=== PATIENT | female | born 1965 | race Caucasian/White ===

== ENCOUNTER 2017-05-23 03:00 | Emergency (ER) | payer MEDICAID, OTHER ==
[~2017-05-23] VITALS: Ht 154.9 cm; Wt 54.0 kg
[~2017-05-23 03:00] MED LIST: SOMA
[2017-05-23] MEDS ORDERED: KETOROLAC 30MG/ML VIAL IV STA (06:40)
[2017-05-23 07:01] LABS: BASOPHILS % 0.7 % (0.0-2.0); EOSINOPHILS % 1.5 % (0.0-5.0); HEMATOCRIT. 36.1 % (36.0-48.0); HEMOGLOBIN. 12.7 g/dL (12.0-16.0); LYMPHOCYTES % 32.7 % (20.0-50.0); MEAN CORPUSCULAR HEMOGLOBIN 31.8 pg (28.0-32.0); MEAN CORPUSCULAR VOLUME 90.3 fL (81.0-99.0); MEAN PLATELET VOLUME 7.4 fl (7.4-10.4); NEUTROPHILS % 55.1 % (40.0-76.0); PLATELET 356 x1000/uL (130-400); RED CELL DISTRIBUTION WIDTH 13.2 % (11.6-14.6)
[2017-05-23 07:06] LABS: PROTHROMBIN TIME 10.7 sec (9.4-11.6)
[2017-05-23 07:12] LABS: CARBON DIOXIDE 27 mEq/L (21-32); CHLORIDE 107 mEq/L (98-107)
[2017-05-23] MEDS ORDERED: ONDANSETRON HCL 4MG/2ML VIAL IM ONE (08:00)
[2017-05-23] MEDS ORDERED: MORPHINE SULFATE 10 MG/ML CPJ IM ONE (08:00)
[2017-05-23 08:05] LABS: CLARITY URINE CLEAR (CLEAR); COLOR URINE YELLOW (YELLOW); GLUCOSE URINE NEGATIVE (NEGATIVE); KETONES URINE NEGATIVE (NEGATIVE); LEUKOCYTE ESTERASE URINE NEGATIVE (NEGATIVE); NITRITE URINE NEGATIVE (NEGATIVE); OCCULT BLOOD URINE NEGATIVE (NEGATIVE); PROTEIN URINE NEGATIVE (NEGATIVE); UROBILINOGEN URINE 0.2 E.U./dL (0.2-1.0)
[2017-05-23 10:40] VITALS: BP 148/51
== END 2017-05-23 11:59 | disposition home or self-care (01) ==
LOC: ER 05:58
DX: R10.9 Unspecified abdominal pain (principal); Z88.1 Allergy status to other antibiotic agents
CPT/HCPCS: 36415; 76770; 80053; 81003; 81025; 83690; 85025; 85610; 96372; 96374; 99285; J1885; J2270; J2405; Z7610

== ENCOUNTER 2017-06-07 04:59 | Emergency (ER) | payer MEDICAID, OTHER ==
[~2017-06-07] VITALS: Ht 152.4 cm; Wt 50.0 kg
[2017-06-07] MEDS ORDERED: KETOROLAC 60MG/2ML VIAL IM ONE (06:15)
[2017-06-07] MEDS ORDERED: ACETAMINOPHEN 500MG TABLET PO ONE (06:15)
[2017-06-07 07:24] VITALS: BP 97/53
[2017-06-07 07:41] LABS: GLUCOSE URINE NEGATIVE (NEGATIVE); KETONES URINE NEGATIVE (NEGATIVE); LEUKOCYTE ESTERASE URINE NEGATIVE (NEGATIVE); NITRITE URINE NEGATIVE (NEGATIVE); OCCULT BLOOD URINE NEGATIVE (NEGATIVE); PROTEIN URINE NEGATIVE (NEGATIVE); SPECIFIC GRAVITY URINE 1.021 (1.005-1.030); UROBILINOGEN URINE 0.2 E.U./dL (0.2-1.0)
[2017-06-07 07:46] LABS: CLARITY URINE CLEAR (CLEAR); COLOR URINE YELLOW (YELLOW)
== END 2017-06-07 09:26 | disposition home or self-care (01) ==
LOC: ER 04:59
DX: M54.41 Lumbago with sciatica, right side (principal); R30.0 Dysuria; Z87.891 Personal history of nicotine dependence; Z90.710 Acquired absence of both cervix and uterus
CPT/HCPCS: 81003; 87086; 96372; 99284; J1885; Z7610

== ENCOUNTER 2017-08-09 06:08 | Emergency (ER) | payer MEDICAID ==
[~2017-08-09] VITALS: Ht 152.4 cm; Wt 50.0 kg
[2017-08-09] MEDS ORDERED: KETOROLAC 60MG/2ML VIAL IM ONE (07:15)
[2017-08-09] MEDS ORDERED: DIAZEPAM 5 MG TABLET PO ONE (08:15)
[2017-08-09 09:53] VITALS: BP 127/76
== END 2017-08-09 09:54 | disposition home or self-care (01) ==
LOC: ER 06:27
DX: M54.2 Cervicalgia (principal); M25.551 Pain in right hip; I10 Essential (primary) hypertension; F41.9 Anxiety disorder, unspecified; Z88.1 Allergy status to other antibiotic agents; V89.2XXA Person injured in unspecified motor-vehicle accident, traffic, initial encounter; Y93.89 Activity, other specified; Y92.89 Other specified places as the place of occurrence of the external cause; Y99.8 Other external cause status
CPT/HCPCS: 72125; 73502; 96372; 99284; J1885; Z7610

== ENCOUNTER 2017-08-23 22:54 | Emergency (ER) | payer MEDICAID ==
[~2017-08-23] VITALS: Ht 162.6 cm; Wt 68.0 kg
[2017-08-24] MEDS ORDERED: KETOROLAC 60MG/2ML VIAL IM ONE (04:45)
[2017-08-24 05:13] VITALS: BP 166/77
[2017-08-24] MEDS ORDERED: LIDOCAINE 5% PATCH TOP SCH (09:00)
== END 2017-08-24 07:15 | disposition home or self-care (01) ==
LOC: ER 22:58
DX: M54.2 Cervicalgia (principal); M25.551 Pain in right hip; G89.29 Other chronic pain; F17.200 Nicotine dependence, unspecified, uncomplicated; Z90.710 Acquired absence of both cervix and uterus; Z98.890 Other specified postprocedural states; Z88.8 Allergy status to other drugs, medicaments and biological substances
CPT/HCPCS: 93005; 96372; 99283; J1885; Z7610

== ENCOUNTER 2018-06-08 10:18 | Emergency (ER) | payer MEDICAID ==
[~2018-06-08] VITALS: Ht 162.6 cm; Wt 50.0 kg
[2018-06-08] MEDS ORDERED: IBUPROFEN 600MG TABLET PO STA (10:40)
[2018-06-08] MEDS ORDERED: KETOROLAC 60MG/2ML VIAL IM ONE (11:45)
[2018-06-08 12:17] VITALS: BP 123/78
== END 2018-06-08 12:34 | disposition home or self-care (01) ==
LOC: ER 10:58
DX: S20.212A Contusion of left front wall of thorax, initial encounter (principal); E78.00 Pure hypercholesterolemia, unspecified; W18.39XA Other fall on same level, initial encounter; Y93.89 Activity, other specified; Y92.89 Other specified places as the place of occurrence of the external cause; Y99.8 Other external cause status; Z88.1 Allergy status to other antibiotic agents; Z90.710 Acquired absence of both cervix and uterus; Z98.890 Other specified postprocedural states
CPT/HCPCS: 71045; 96372; 99283; J1885